=== PATIENT | male | born 1990 | race Caucasian/White ===

== ENCOUNTER 2016-10-27 05:11 | Emergency (ER) | payer OTHER ==
[~2016-10-27] VITALS: Ht 177.8 cm; Wt 88.0 kg
[2016-10-27 07:57] VITALS: BP 134/80
== END 2016-10-27 07:59 | disposition home or self-care (01) ==
LOC: ER 07:39
DX: M54.2 Cervicalgia (principal); M25.512 Pain in left shoulder; M25.511 Pain in right shoulder
CPT/HCPCS: 99281; 99282